=== PATIENT | female | born 1975 | race Caucasian/White ===

== ENCOUNTER 2018-01-24 15:14 | Emergency (ER) | payer OTHER ==
[2018-01-24] MEDS ORDERED: CHLORDIAZEPOXIDE 25MG PREPK#6 BTL TAKEHOME ONE (16:39)
[2018-01-24] MEDS ORDERED: chlordiazePOXIDE 25 MG CAP PO ONE (16:39)
--- NOTE | 2018-01-24 16:39 | EDPHY ---
General - History Smoking Status: Current every day smoker Time Seen by Provider: 01/24/18 16:22 Narrative: CHIEF COMPLAINT: "Detoxing" HISTORY OF PRESENT ILLNESS: Patient presents with complaints of detoxing from alcohol. She states that she has been a heavy drinker for years. She has been sober for nearly 2 and half months until January 17. At that time she resumed drinking beer, vodka and cider. She has been "drinking heavily each day," with last intake of alcohol at 2pm today. Her mother in 2 friends are at bedside. They report concern for her would like her to have supervised detox. She has had some shaking earlier today but no vomiting. No chest pain. No headache. No fever. She reports that she has gone into withdrawals before and is very concerned about this. No modifying factors. Denies any illicit substance recently or remotely. REVIEW OF SYSTEMS: Ten systems reviewed and are negative unless otherwise noted in the HPI PCP: None SPECIALISTS: Dr. Barrios, psychiatry PAST MEDICAL HISTORY: Alcohol abuse. LMP 3 days ago PAST SURGICAL HISTORY: No surgical history SOCIAL HISTORY: Does smoke cigarettes. Alcohol use as above. Denies any drug use. FAMILY HISTORY: Noncontributory EXAMINATION General Appearance: Alert, no distress. Well-developed well-nourished. Tearful but consolable by Head: normocephalic, atraumatic Eyes: Pupils equal and round, no conjunctival pallor or injection ENT, Mouth: Mucous membranes moist Neck: Normal inspection, supple, non-tender Respiratory: Lungs are clear to auscultation. No wheezing rhonchi or crackles Cardiovascular: Regular rate and rhythm. No murmur Neurological: GCS 15. A&O, nonfocal, no pronator drift. Normal finger-to- nose. No tremor. Skin: Warm and dry, no rash. No petechiae or purpura. No cellulitis. Extremities: Nontender, no pedal edema Psychiatric: Mood and affect normal DIFFERENTIAL DIAGNOSES: Including but not limited to alcohol intoxication MDM: 4:30 p.m. Acute alcohol intoxication with alcohol dependency. He last intake of alcohol was reportedly 2:00 p.m. Today. She does have a strong odor of alcohol about her. The she is afebrile. She is alert and oriented without any encephalopathy or mental status change. There is no evidence of delirium tremens or encephalopathy. I do feel she is stable for [facility] for monitored with p.o. Taper of Librium. The patient is comfortable this. Her mother is comfortable with this and willing to take her. I do feel this is reasonable. We discussed ED precautions for any symptoms or relapse. We discussed follow up with her psychiatrist, and I provided the on-call primary care physician for her she will be discharged in stable condition. SUPERVISION: This patient was independently evaluated without direct involvement of or examination by the attending physician. (Matthew Snider) Medical Decision Making: I did not see this patient while she was in the emergency department. However care was discussed with the PA while the patient was in the department. I agree with treatment plan and management (Doni Tomlinson) - Objective Vital Signs: Initial Vital Signs Temperature (C) 36.7 C 01/24/18 15:22 Heart Rate 103 H 01/24/18 15:22 Respiratory Rate 18 01/24/18 15:22 Blood Pressure 154/110 H 01/24/18 15:22 O2 Sat (%) 95 01/24/18 15:22 O2 Delivery Mode Room Air Allergies/Adverse Reactions: No Known Allergies Allergy (Unverified 12/26/12 10:25) Home Medications: Medication Instructions Recorded NK [No Known Home Meds] 01/24/18 Medications Given: Discontinued Medications Chlordiazepoxide (Librium 25 Mg Prepack#6) 1 btl TAKEHOME EDNOW ONE Stop: 01/24/18 16:40 Last Admin: 01/24/18 16:46 Dose: 1 btl Chlordiazepoxide HCl (Librium) 25 mg PO EDNOW ONE Stop: 01/24/18 16:40 Last Admin: 01/24/18 16:47 Dose: 25 mg Departure - Departure Disposition: Home, Routine, Self-Care Clinical Impression: Acute alcohol intoxication Condition: Good Instructions: Chlordiazepoxide (By mouth), Alcohol Intoxication (ED) Additional Instructions: 1. Proceed directly to the [facility] for librium taper 2. Return to ED for any withdrawal symptoms as discussed 3. Return to emergency department or contact 911 for any thoughts of self-harm or harm towards others Referrals: Mervin Ovalle MD [[facility] [place]] - As per Instructions RUDY BARRIOS [Medical Doctor] - As per Instructions [facility] 24 Hours [Outside] - As per Instructions
[2018-01-24 16:51] VITALS: BP 114/86
== END 2018-01-24 17:04 | disposition home or self-care (01) ==
DX: F10.129 Alcohol abuse with intoxication, unspecified (principal); F17.210 Nicotine dependence, cigarettes, uncomplicated